=== PATIENT | male | born 2000 | race Caucasian/White ===

== ENCOUNTER 2022-04-19 11:40 | Emergency (ER) | payer BC ==
[2022-04-19] MEDS ORDERED: Oxymetazoline HCl 0.05% ( 15 ML ) ONE (12:30)
== END 2022-04-19 13:35 | disposition home or self-care (01) ==
LOC: CSHERS 11:40
DX: U07.1 COVID-19 (principal); R04.0 Epistaxis; I10 Essential (primary) hypertension
CPT/HCPCS: 99283